=== PATIENT | female | born 1990 | race Caucasian/White ===

== ENCOUNTER 2017-01-28 03:45 | Inpatient (IN) ==
[2017-01-28] MEDS ORDERED: Metoclopramide 10 MG/2 ML VIAL IVP PRN (05:29)
[2017-01-28] MEDS ORDERED: miSOPROStol 100 MCG TABLET PO PRN (05:29)
[2017-01-28] MEDS ORDERED: Famotidine 20 MG/2 ML VIAL IVP PRN (05:29)
[2017-01-28] MEDS ORDERED: Naloxone 0.4 MG/ML INJ IVP PRN (05:29)
--- NOTE | 2017-01-28 05:34 | OB/GYN History & Physical ---
Date of Encounter: 01/28/17 Time of Encounter: 05:30 Assessment and Plan (1) 39 weeks gestation of Current visit: Yes Status: Acute Patient admitted for IOL (2) Elective induction of labor planned Current visit: Yes Status: Acute Cytotec 50mcg po (3) complicated by subutex maintenance, antepartum Current visit: Yes Status: Acute Patient in baby centered recovery group (4) Anemia affecting in third trimester Current visit: Yes Status: Acute Patient on ferrous sulfate BID daily (5) Tobacco use during Current visit: Yes Status: Acute smoking cessation Qualifiers: Trimester: third trimester Qualified Code(s): O99.333 - Smoking (tobacco) complicating , third trimester History of Present Illness Chief complaint: Scheduled IOL for term with favorable cervix HPI: Ms. Henderson is a 26 year old female at 39w0d presents to labor and delivery for scheduled IOL. House score on induction consent was 9. Patient reports +FM, denies LOF, VB or contractions. Patient denies any complications with current . Patient is in [facility] and is currently on Subutex. Blood type: A+, Rubella: Immune, Hep B: Negative, GBS: negative. Past Med Surg Social Fam HX - Past Medical History Source: patient Medical history: no medical history Psychiatric history: no psych history - Past Surgical History Surgical History: no surgical history - Social History Smoking Status: Current every day smoker Packs per day: 20 Alcohol use: none Drug use: none Current living situation: Home - Independent Activity Level: Independent ambulation Recent Out of Country Travel Within the Last 8 Weeks: No Exposure or Possible Exposure to Illness During Travel: No - Family History Mother Adopted: No Family Member Ethnicity: Non- Living Status: Still Living Hx Family Cardiac Disorders: No Hx Family Respiratory Disorders: No Hx Family Cancer: No Hx Family GI Disorders: No Hx Family Genitourinary Disorders: No Hx Family Endocrine Disorder: No Hx Family Musculoskeletal Disorders: No Hx Family Neuromuscular Disorders: No Hx Family Neurologic Disorders: No Hx Family HEENT Disorders: No Hx Family Autoimmune Disorders: No Hx Family Reproductive Disorders: No Hx Family Psychosocial Disorders: No Hx Family Medical Disorders: No Obstetrical History - Pregnancies : 1 Para: 0 Term: 0 : 0 Ab's: 0 Livin Medications and Allergies Buprenorphine HCl [Subutex] 8 mg SL 1-2XD PRN 01/28/17 [History] Ferrous Sulfate [Iron] 325 mg PO DAILY 01/28/17 [History] Ranitidine HCl [Zantac 75] 1 tab PO DAILY 01/28/17 [History] Allergies Penicillins Allergy (Verified 06/17/15 16:16) Blister Review of System OB - Constitutional Constitutional ROS IM: no chills, no fever(s), no headache(s) - Cardiovascular Cardiovascular: no edema, no palpitations, no pedal edema, no syncope - Respiratory Respiratory: no cough - Gastrointestinal Gastrointestinal: no constipation, no diarrhea, no heartburn, no nausea, no vomiting - Genitourinary Genitourinary: no abnormal vaginal bleeding, no dysuria, no flank pain, no urinary frequency, no urinary incontinence, no urinary urgency, no vaginal discharge, no vaginal odor, no vaginal pruritis Exam - Constitutional Constitutional: well developed, well nourished, no acute distress, average body habitus - HEENT HEENT: Normocephaly, Mucus Membranes Moist - Neck Neck exam: full ROM, supple - Lungs Respiratory exam: CTAB - Cardiovascular Cardiovascular exam: RRR, +S1, +S2 - Abdomen Abdomen: Present: bowel sounds normal, gravid, non tender - Extremities Extremities exam: calf tenderness, full ROM, normal inspection Deep Tendon Reflex Grade: 2+ Normal - Uterus Uterus exam: Present: normal size, normal contour - Anus/Rectum Anus/Rectum: Present: normal perianal skin - Comments Comments: FHR 135 bpm moderate variability +15x15 accels no decels noted. CAt. 1 tracing. One contraction noted. Results All other labs normal.
[2017-01-28 05:42] LABS: Basophils % 0.3 %; Eosinophils # 0.1 K/mcL (0.0-0.6); Hematocrit 36.2 % (35.3-44.9); Hemoglobin 12.3 g/dL (11.5-15.4); Immature Granulocytes % 0.5 % (0-4); Lymphocytes # 1.9 K/mcL (0.6-4.6); Mean Corpuscular Hemoglobin 29.6 pg (28.0-33.3); Mean Platelet Volume 11.2 fL (9.4-12.4); Monocytes % 9.7 %; Neutrophils # 7.6 K/mcL (1.6-8.9); Platelet Count 227 K/mcL (140-400); Red Blood Count 4.16 M/mcL (3.82-4.97); Red Cell Distribution Width 12.1 % (11.5-14.5); Segmented Neutrophils % 70.5 %
--- NOTE | 2017-01-28 07:53 | Anesthesia Evaluation PreOp ---
Date of Encounter: 01/28/17 Time of Encounter: 07:50 - Past History Planned Operation: amber Cardiac History: Denies any Significant Hx Pulmonary History: Smoker, Pack/yr (10) BOLTER HELPER History: Denies Any Significant HX Other Medical History: GERD Anesthesia History: No Prior Anesthetic Complications : Yes Test: Positive Alcohol Use: none Drug use: none, other (subutex) Medications and Allergies Buprenorphine HCl [Subutex] 8 mg SL 1-2XD PRN 01/28/17 [History] Ferrous Sulfate [Iron] 325 mg PO DAILY 01/28/17 [History] Ranitidine HCl [Zantac 75] 1 tab PO DAILY 01/28/17 [History] Allergies Penicillins Allergy (Verified 06/17/15 16:16) Blister - Meds/Allergy Pre-op Review Medications Reviewed: Yes Allergies Reviewed: Yes Beta Blockers on Current Med List: No Anesthesia Results - Labs 01/28/17 05:20 Anesthesia Exam 130/80 100 fht 133 Height: 5'5" Weight: 230 NPO (# of Hours): 6 Pain Scale: 1 Pain Scale Used: Numeric (1 - 10) - HEENT Pupil (Motor): Pupils equal Mallampati: II Teeth: Normal Oral Opening: Greater than 3 - BOLTER HELPER LOC: Oriented BOLTER HELPER Motor: Normal RUE, Normal LUE, Normal RLE, Normal LLE, Normal Face BOLTER HELPER Sensory: Normal: RUE, LUE, RLE, LLE, Face - Cardiac Rhythm: Regular Murmur: None - Pulmonary Breath Sounds: bilateral Clear Respiratory Effort: Symmetrical Anesthesia Assess/Plan ASA Score: 2 Modified [place] Scale for Level of Consciousness: Cooperative, oriented, and tranquil Anesthetic Plan: Regional Monitoring Plan: Standard Monitors Recovery Plan: Other (risks discussed, questions answered, consented)
--- NOTE | 2017-01-28 08:08 | OB Labor Progress Note ---
Date of Encounter: 01/28/17 Time of Encounter: 08:06 Labor Progress Note - Subjective Subjective: The patient is comfortable with contractions. She had po Cytotec just prior to 0600 - Vital Signs Vital Signs: Afebrile, vital signs stable - Cervix Cervix: 3/70/-1, vertex - Heart Tones Heart Tones: 120s, CAT 1 - [place]: Contractions every 2-3 minutes when monitoring, unable to filler picker when patient on side - Interventions Interventions: 39 week IUP induction of labor, history of substance abuse - Plan Plan: Induction of labor with Cytotec, anticipate vaginal delivery
[2017-01-28] MEDS ORDERED: Buprenorphine Hcl [Subutex] 8 MG SL PRN (09:42)
[2017-01-28] MEDS ORDERED: Nicotine 21 MG PATCH.TD24 TD SCH (09:45)
--- NOTE | 2017-01-28 10:02 | OB Labor Progress Note ---
Date of Encounter: 01/28/17 Time of Encounter: 10:00 Labor Progress Note - Subjective Subjective: Comfortable but feeling contractions - Vital Signs Vital Signs: Afebrile, vital signs stable - Cervix Cervix: 3/70/-1, vertex, mid position - Heart Tones Heart Tones: 120s baseline, CAT 1 - [place]: Contractions irregular and difficult to monitor - Interventions Interventions: 39 week IUP with history of narcotic use in group, on Subutex. Tobacco use - Plan Plan: Nicotine patch per patient request, amniotomy with IUPC placed. Moderate amount of clear fluid seen. Continue induction of labor. Follow contraction pattern to determine if further augmentation will be needed
[2017-01-28] MEDS: Ringers Solution, Lactated 1,000 ML IVC SCH ×3 (10:03→17:58)
[2017-01-28] MEDS ORDERED: miSOPROStol 25 MCG TABLET PO ONE (11:48)
[2017-01-28] MEDS ORDERED: miSOPROStol 100 MCG TABLET PO ONE (12:45)
[2017-01-28] MEDS ORDERED: Oxytocin 20 units/ LR 1000 mL 20 UNIT/1,000 ML BAG IVC SCH (16:45)
--- NOTE | 2017-01-28 16:50 | OB Labor Progress Note ---
Date of Encounter: 01/28/17 Time of Encounter: 16:48 Labor Progress Note - Subjective Subjective: The patient is comfortable with contractions. She is not requiring any pain medication at this time. We are unsure at this point if she has obtained her home Subutex prescription as she does not want any family members to be aware of her usage. Patient has had family in with her at all times. If she is in need of pain medication she may have IV fentanyl in place of Nubaine. She is considering an epidural. - Vital Signs Vital Signs: afeb,VSS - Cervix Cervix: 3-4/90/-1, vtx - Heart Tones Heart Tones: 140s baseline, CAT1 - [place]: Contractions are irregular after 2 doses of po Cytotec, every 4-8 minutes, 40- 60 mmHg - Interventions Interventions: 39 week induction of labor, narcotic use, obesity - Plan Plan: Pitocin augmentation, anticipate vaginal delivery
[2017-01-28] MEDS ORDERED: *HR* FentaNYL (PF) 100 MCG/2 ML VIAL IVP PRN (16:56)
[2017-01-28] MEDS ORDERED: *HR* Ropivacaine/PF 0.2% 10 ML AMPUL EP ONE (17:48)
[2017-01-28] MEDS ORDERED: *HR* FentaNYL (PF) 100 MCG/2 ML VIAL EP ONE (17:48)
[2017-01-28] MEDS ORDERED: *HR* Ropivacaine/PF 0.2% 10 ML AMPUL ONE (17:51)
[2017-01-28] MEDS ORDERED: *HR* FentaNYL (PF) 100 MCG/2 ML VIAL ONE (17:51)
[2017-01-28] MEDS ORDERED: Epidural Premix (fent/bupiv) 110 ML EP ONE (17:52)
[2017-01-28] MEDS ORDERED: Epidural Premix (fent/bupiv) 110 ML EP SCH (18:00)
--- NOTE | 2017-01-28 18:51 | Anesthesia Procedures ---
Date of Encounter: 01/28/17 Time of Encounter: 18:49 Procedures: Anesthesia - Epidural/Spinal Patient examined: Yes OB Eval: Gestational age: 39 OB Eval: : 1 OB Eval: Hx Para: 0 OB Eval: Dilated at (cm): 4 OB Eval: Contractions: Non-stressed pattern Consent Obtained: Yes Supplemental Oxygen: None/Room Air Site Prep: Aseptic Technique, Sterile prep and drape, 0.5% Chlorhexidine/Alcohol Patient position: upright Local Anesthetic: Lidocaine 1% Amount of Local Anesthetic used: 3 Touhy Needle Gauge: 18 Touhy Needle Depth (cm): 9 Catheter Depth at Skin (cm): 20 Test Dose (1.5% Lido + Epi): Volume given (mls): 3 Test Dose Result: Negative Loading Dose: Fentanyl (mcg): 100 Loading Dose: Other: ropivicaine 0.2% 10cc Loading Dose Administered: Thru Touhy Needle Infusion Med: 0.125% Bupivacaine w/ 2 mcg/ml Fentanyl Infusion Rate (mls/hr): 15 (pcea 5cc q 30") Catheter Secured in Place: Tegaderm Interspace Used: L3-L4 Loss of Resistance (MARY): Yes Blood: No CSF: No Paresthesia: No Procedure: aseptic, tolerated well, VSS, effective Vitals + FHT's: 116/60 86 16 fht 132
--- NOTE | 2017-01-28 19:18 | OB Labor Progress Note ---
Date of Encounter: 01/28/17 Time of Encounter: 19:16 Labor Progress Note - Subjective Subjective: Pt comfortable after epidural - Vital Signs Vital Signs: afeb, VSS - Cervix Cervix: 4/90/-1, vtx - Heart Tones Heart Tones: 130s baseline, CAT1 - [place]: q 2-3' x 30-60 mmHg on 2 mU pitocin - Interventions Interventions: 39 wk IUP, narcotic use, obesity - Plan Plan: IOL, anticipate
[2017-01-28] MEDS ORDERED: 0.9 % Sodium Chloride 1,000 ML ONE (20:59)
[2017-01-28] MEDS ORDERED: Patient Taking Own Medication 1 EACH SL SCH (21:00)
--- NOTE | 2017-01-28 21:27 | OB Labor Progress Note ---
Date of Encounter: 01/28/17 Time of Encounter: 21:24 Labor Progress Note - Subjective Subjective: Pt comfortable with epidural - Vital Signs Vital Signs: Afeb, VSS - Cervix Cervix: 7/90/0, vtx w/ ant edema - Heart Tones Heart Tones: 130s accels w/ occ variable - [place]: q2' x 75 mmHg on 4 mU PIT - Interventions Interventions: 39 wk IUP w/ tachysystole - Plan Plan: D/C pitocin, peanut ball, uterine repositioning
--- NOTE | 2017-01-28 23:15 | OB/GYN Procedure Note ---
Delivery - Delivery Provider: Umu De Paz Intrapartum events: none Delivery induction: AROM, oxytocin, misoprostol Delivery monitor: external FHT, external uterine, internal uterine Anesthesia: epidural Estimated Blood Loss: 100 - Infant (s) Infant A Delivery Date: 01/28/17 Delivery Time: 22:41 Presentation: vertex Position: GEE Route of delivery: Gender: Female Viability: Viable Pounds: 6 Ounces: 10 Weight Gram: 2.995 kg at 1 minute: 8 at 5 mins: 9 Shoulder Dystocia: not encountered Placenta: spontaneous, uterine exploration (No POC) Cord: nuchal cord, 3 umbilical vessels, nuchal reduced - Repair Episiotomy: none Laceration Description: Periurethral, Perineal - 2nd Degree, Superficial - Complications Delivery complications: none Delivery comments: The patient was complete and pushing with epidural anesthesia with a spontaneous vaginal delivery in the GEE position of a vigorous female infant weighing 6 lbs. 10 oz. with Apgars of 8 at 1 minute and 9 at 5 minutes. Infant was placed on the maternal abdomen. The cord was clamped and cut after pulsations ceased. Cord blood obtained. The placenta was delivered spontaneous and intact. Right labial laceration was hemostatic and not repaired. The second-degree perineal laceration was not hemostatic and was repaired with 3-0 Vicryl in the usual fashion. Estimated blood loss 100 mL, complications none - Disposition Mom disposition: stable in LDR [place] disposition: stable in LDR
[2017-01-29] MEDS ORDERED: Ibuprofen 600 MG TABLET PO PRN (00:56)
[2017-01-29] MEDS ORDERED: Oxytocin 20 units/ LR 1000 mL 20 UNIT/1,000 ML BAG IVC SCH (00:56)
[2017-01-29] MEDS ORDERED: Acetaminophen 325 MG TABLET PO PRN (00:56)
[2017-01-29] MEDS ORDERED: Measles/Mumps/Rubella Vacc 0.5 ML VIAL SQ PRN (00:56)
[2017-01-29 05:17] LABS: Basophils % 0.1 %; Eosinophils % 0.1 %; Hematocrit 32.6 % (35.3-44.9); Immature Granulocytes % 0.3 % (0-4); Lymphocytes % 13.7 %; Mean Corpuscular HGB Conc 33.7 g/dL (31.6-35.5); Mean Corpuscular Hemoglobin 29.3 pg (28.0-33.3); Mean Corpuscular Volume 86.9 fL (83.0-100.0); Mean Platelet Volume 11.3 fL (9.4-12.4); Monocytes # 0.9 K/mcL (0.0-1.3); Monocytes % 6.5 %; Neutrophils # 11.5 K/mcL (1.6-8.9); Platelet Count 195 K/mcL (140-400); Red Blood Count 3.75 M/mcL (3.82-4.97); Segmented Neutrophils % 79.3 %
[2017-01-29] MEDS ORDERED: Famotidine 20 MG TABLET PO SCH (06:30)
--- NOTE | 2017-01-29 07:39 | OB/GYN Progress Note ---
Date of Encounter: 01/29/17 Time of Encounter: 07:40 - Assessment and Plan (1) Status post vaginal delivery Current Visit: Yes Status: Acute We will discharge home in the morning if stable and afebrile Subjective - Subjective Interval history: Patient doing well this morning minimal pain and bleeding significantly slowing down. Baby is breast-feeding well she is having no issues at this time. Patient reports: appetite normal, voiding normally, pain well controlled, ambulating normally [place]: doing well Objective - Latest Vital Signs Latest vital signs: Vital Signs Temp Pulse Resp BP Pulse Ox 01/29/17 03:50 98.1 F 73 16 125/81 97 01/29/17 03:45 12 01/29/17 02:45 98.7 F 69 12 116/73 96 01/29/17 01:40 98.4 F 73 16 127/76 97 Intake and Output 01/28/17 01/28/17 01/29/17 15:59 23:59 07:59 Intake Total 1000 / 1000 1000 / 1000 300 / 300 Output Total 1200 / 1200 Balance 1000 / 1000 1000 / 1000 -900 / -900 Intake: IV Fluids 1000 / 1000 1000 / 1000 Lactated Ringers 1,000 ML 1000 / 1000 1000 / 1000 @ 125 mls/hr IVC .Q8H WANG Rx#:[id number] Oral 300 / 300 Output: Urine 1200 / 1200 Other: Weight 99.246 kg Patient Weight 01/29/17 23:59 Weight 99.246 kg - Exam Lungs: bilateral: normal Chest: Normal S1, Normal S2 Extremities: Present: normal Abdomen: Present: soft Uterus: Present: normal, firm Uterus Position: At Umbilicus - Labs Labs: Laboratory Results - last 24 hr 01/29/17 04:50 WBC 14.5 H RBC 3.75 L Hgb 11.0 L Hct 32.6 L MCV 86.9 MCH 29.3 MCHC 33.7 RDW 12.0 Plt Count 195 MPV 11.3 Immature Gran % 0.3 Seg Neutrophils % 79.3 Lymphocytes % 13.7 Monocytes % 6.5 Eosinophils % 0.1 Basophils % 0.1 Neutrophils # 11.5 H Lymphocytes # 2.0 Monocytes # 0.9 Eosinophils # 0.0 Basophils # 0.0
[2017-01-29] MEDS ORDERED: Benzocaine/Menthol 56 GM AEROSOL SPRAY TP PRN (09:14)
[2017-01-29] MEDS: Prenatal Vit/FA 1 EACH TABLET PO SCH (09:21)
[2017-01-30 08:16] VITALS: BP 100/61
--- NOTE | 2017-01-30 08:17 | Discharge Summary ---
Date of Encounter: 01/30/17 Time of Encounter: 08:15 - Discharge Diagnosis (1) Status post vaginal delivery Priority: Primary Status: Acute Comments: Stable. Meeting milestones (2) Tobacco use during Priority: Secondary Status: Chronic Comments: Smoking cessation information has been reviewed Qualifiers: Trimester: third trimester Qualified Code(s): O99.333 - Smoking (tobacco) complicating , third trimester - Discharge Medications Prescriptions: Ibuprofen [Motrin] 600 mg PO Q6HR PRN #30 tablet PRN Reason: Mild To Moderate Pain Home Medications: Buprenorphine HCl [Subutex] 8 mg SL 1-2XD PRN 01/28/17 [History] Ranitidine HCl [Zantac 75] 1 tab PO DAILY 01/28/17 [History] Breast Pump [BREAST PUMP] 1 each .ROUTE AD #1 each 01/30/17 [Rx] Ibuprofen [Motrin] 600 mg PO Q6HR PRN #30 tablet 01/30/17 [Rx] Allergies/Adverse Reactions: Allergies Penicillins Allergy (Verified 06/17/15 16:16) Blister Data Procedures and tests throughout hospitalization: Laboratory Tests 01/28/17 01/29/17 05:20 04:50 WBC 10.8 14.5 H RBC 4.16 3.75 L Hgb 12.3 11.0 L Hct 36.2 32.6 L MCV 87.0 86.9 MCH 29.6 29.3 MCHC 34.0 33.7 RDW 12.1 12.0 Plt Count 227 195 MPV 11.2 11.3 Immature Gran % 0.5 0.3 Seg Neutrophils % 70.5 79.3 Lymphocytes % 18.0 13.7 Monocytes % 9.7 6.5 Eosinophils % 1.0 0.1 Basophils % 0.3 0.1 Neutrophils # 7.6 11.5 H Lymphocytes # 1.9 2.0 Monocytes # 1.0 0.9 Eosinophils # 0.1 0.0 Basophils # 0.0 0.0 Date of admission: 01/28/17 03:57 Primary care physician: PCP NO Consults: 01/29/17 00:56 Consult to Transportation Modeler [CONS] Routine Comment: Vaginal delivery, consult needed Consult to E Tailer [CONS] Routine Reason for SW Consult: h/o narcotic use, on subutex Discharging clinician: Umu De Paz Anticipated date of discharge: 01/30/17 - Patient Status Disposition: Home, Self-Care Condition: Good Functional capacity at discharge: independent ambulation Overall status at discharge: patient is progressing back to baseline - Discharge Instructions Follow Up With: ALEX,PCP [Primary Care Provider] - - Diet and Activity Activity: increase activity as tolerated, resume usual activities as tolerated Diet: regular diet Hospital Course Procedures: Reason for admission: induction of labor Delivery: Episiotomy: none Laceration: 2nd degree Other procedures: none complications: none Discharge diagnosis: IUP at term delivered baby: female Hospital course: Uncomplicated, meeting milestones, routine PP, stable Time spent discussing smoking cessation with patient: 3 to 10 minutes Time Attestation: Total time spent providing and/or coordinating discharge services: Time Spent: Less than 30 minutes Exam - Constitutional Vitals: Temp Pulse Resp BP Pulse Ox 98.3 F 66 14 109/60 97 01/29/17 19:45 01/29/17 19:45 01/29/17 19:45 01/29/17 19:45 01/29/17 19:45 General appearance IM: cooperative, A&O X 3, pleasant, no acute distress - Respiratory Respiratory exam: Absent: respiratory distress - Cardiovascular Cardiovascular exam IM: Absent: irregular rhythm - GI/Abdominal GI/Abdominal exam IM: normal bowel sounds, soft, no peritoneal signs - Rectal Rectal exam: deferred - Uterine Tone: Firm Uterus Position: 2 Fingers Below Umbilicus - Extremities Exam Extremities exam IM: Present: normal inspection, warm. Absent: calf tenderness - Neurological Exam Neurological exam: alert, no focal deficits
[2017-01-30] MEDS: Prenatal Vit/FA 1 EACH TABLET PO SCH (09:03)
== END 2017-01-30 12:51 | disposition home or self-care (01) | DRG 560 ==
LOC: 1NENULAB 03:57 → 1NENUOBS 01-29 01:13
PROVIDERS: ADMIT Obstetrics & Gynecology; ATTEND Obstetrics & Gynecology